=== PATIENT | male | born 1990 | race Caucasian/White ===

== ENCOUNTER 2019-08-28 15:11 | Outpatient (CLI) | payer BC | END 2019-08-28 15:12 | disposition home or self-care (01) | LOC: CTENTCT 15:11 | PROVIDERS: ATTEND Otolaryngology Plastic Surgery within the Head & Neck | DX: J32.8 Other chronic sinusitis (principal) | CPT/HCPCS: 70486 ==

== ENCOUNTER 2019-09-20 07:33 | Day surgery (SDC) | payer BC ==
[2019-09-19 10:26] VITALS: BMI 25.0
[2019-09-20] MEDS ORDERED: AFRIN NASAL MIST 15 ML BOT ONE ×2 (08:56→10:02)
[2019-09-20] MEDS ORDERED: Ondansetron PF 4 MG/2 ML Vial ONE (09:31)
[2019-09-20] MEDS ORDERED: Dexamethasone 20 MG/5 ML VIAL ONE (09:31)
[2019-09-20] MEDS ORDERED: Succinylcholine Chloride 20 MG/ML 10 ml SYRINGE FS ONE (09:31)
[2019-09-20] MEDS ORDERED: PROPOFOL 200 MG/20 ML VIAL ONE (09:31)
[2019-09-20] MEDS ORDERED: Lidocaine 1% PF 5 ML VIAL ONE (09:31)
[2019-09-20] MEDS ORDERED: Rocuronium Bromide 10 MG/ML (10ML VIAL) ONE (09:31)
[2019-09-20] MEDS ORDERED: Glycopyrrolate 0.2 MG/ML 5 ML SYRINGE ONE (09:31)
[2019-09-20] MEDS ORDERED: Bacitracin Zinc Ointment 30 gm TUBE ONE (10:02)
[2019-09-20] MEDS ORDERED: Lidocaine 1% w/Epinephrine 1:100K 20 ML VIAL ONE (10:02)
[2019-09-20] MEDS ORDERED: Fentanyl 250 MCG/5 ML VIAL ONE (10:05)
[2019-09-20] MEDS ORDERED: Fentanyl 100 MCG/2 ML VIAL ONE (11:45)
[2019-09-20] MEDS ORDERED: HYDROcodone/Acetaminophen 5/325 mg Tablet ONE (12:06)
--- NOTE | 2019-09-21 12:31 | OP ---
DATE OF PROCEDURE: 09/20/2019 PREOPERATIVE DIAGNOSES: 1. Chronic rhinosinusitis. 2. Bilateral nasal polyposis. 3. Nasal obstruction. 4. Bilateral inferior turbinate hypertrophy. POSTOPERATIVE DIAGNOSES: 1. Chronic rhinosinusitis. 2. Bilateral nasal polyposis. 3. Nasal obstruction. 4. Bilateral inferior turbinate hypertrophy. PROCEDURES PERFORMED: 1. Bilateral endoscopic sinus surgery, total ethmoidectomies with removal of tissue. 2. Bilateral endoscopic sinus surgery, maxillary antrostomies with removal of tissue. 3. Bilateral endoscopic sinus surgery, frontal sinusotomy with removal of tissue. 4. Bilateral endoscopic sinus surgery, sphenoidotomy with removal of tissue. 5. Bilateral inferior turbinate submucosal resection. 6. [employer] image-guided cranial-base navigational surgery. ESTIMATED BLOOD LOSS: 50 mL. COMPLICATIONS: None. ANESTHESIA: GETA. DESCRIPTION OF PROCEDURE: The patient was taken to the operating room, placed supine on the operating room table. General endotracheal anesthesia was obtained by the Anesthesia Staff. Tube was secured in the midline of the left lower lip and the patient was placed in the beach chair position. Following this, the 0-degree endoscope was advanced to the nasal cavity. There was marked scarring and nasal polyps obstructing and obliterating the middle meatus. 1% lidocaine with 1:100,000 epinephrine was injected into the inferior turbinates, middle turbinates, and lateral nasal wall bilaterally. Following this, the [place] elevator was used to medialize the middle turbinates. There was adhesions present that were cut using the [place] elevator and the straight forceps. This allowed access to the middle meatus. Polypoid tissue was removed using the microdebrider from this area. A ball-ended probe was then used to identify the uncinate process and anteriorly fractured the uncinate process. The uncinate process was then removed bilaterally using 0-degree microdebrider and the up-biting Blakesley forceps. Following this, a ball-ended probe was used to palpate and identify the maxillary sinus ostia. Maxillary sinus ostia were then widened using the curved microdebrider and the straight [place]ley forceps bilaterally. Polypoid mucosa and polyps were removed from the maxillary sinus area. Following this, ethmoidal bulla was identified using the image-guided system and was punctured using the 0-degree microdebrider and was removed with the 0-degree microdebrider and up-biting Blakesley forceps. Following this, the grand lamella was identified and was punctured into the posterior ethmoidal sinus using 0-degree microdebrider. Working from posterior to anterior, the ethmoidal cells were opened in a mucosal-sparing technique. Polypoid tissue and debris were removed throughout the ethmoidal sinuses. Following this, the sphenoid sinuses were approached through the previous ethmoidectomies. Then, the image-guided system was used to confirm position of the anterior face of the sphenoid sinus. A sphenoidotomy was created using a Clark tip suction bilaterally. Following this, the sphenoidotomy was widened in a medial and inferior direction using the 0-degree microdebrider. Polyps and purulent debris were removed from the sphenoid sinuses bilaterally. Following this, the 45-degree endoscope and the 40-degree microdebrider blade was used to further open the frontal sinus recess bilaterally, exposing the frontal sinus ostia. The frontal sinus ostia were widened using the 40-degree microdebrider and up-biting Blakesley forceps bilaterally. Following this, the inferior turbinates were punctured on the anterior and inferior aspect of the submucosal microdebrider and submucosal resection was performed of the anterior and inferior aspect of the inferior turbinates bilaterally. Following this, the nasal cavity was irrigated and NasoPore packing was placed within the middle meatus. The patient tolerated the procedure well. Job ID: [id number]
== END 2019-09-20 13:25 ==
LOC: SDC 07:33
PROVIDERS: ATTEND Otolaryngology Plastic Surgery within the Head & Neck
PROC: 09BU8ZZ Excision of Right Ethmoid Sinus, Via Natural or Artificial Opening Endoscopic (ICD-10-PCS; principal; 2019-09-20)
PROC: 8E09XBZ Computer Assisted Procedure of Head and Neck Region (ICD-10-PCS; principal; 2019-09-20)
PROC: 09CW8ZZ Extirpation of Matter from Right Sphenoid Sinus, Via Natural or Artificial Opening Endoscopic (ICD-10-PCS; principal; 2019-09-20)
PROC: 09BV8ZZ Excision of Left Ethmoid Sinus, Via Natural or Artificial Opening Endoscopic (ICD-10-PCS; principal; 2019-09-20)
PROC: 099R8ZZ Drainage of Left Maxillary Sinus, Via Natural or Artificial Opening Endoscopic (ICD-10-PCS; principal; 2019-09-20)
PROC: 09BL8ZZ Excision of Nasal Turbinate, Via Natural or Artificial Opening Endoscopic (ICD-10-PCS; principal; 2019-09-20)
PROC: 09BT8ZZ Excision of Left Frontal Sinus, Via Natural or Artificial Opening Endoscopic (ICD-10-PCS; principal; 2019-09-20)
PROC: 09BS8ZZ Excision of Right Frontal Sinus, Via Natural or Artificial Opening Endoscopic (ICD-10-PCS; principal; 2019-09-20)
PROC: 099Q8ZZ Drainage of Right Maxillary Sinus, Via Natural or Artificial Opening Endoscopic (ICD-10-PCS; principal; 2019-09-20)
PROC: 09CX8ZZ Extirpation of Matter from Left Sphenoid Sinus, Via Natural or Artificial Opening Endoscopic (ICD-10-PCS; principal; 2019-09-20)
DX: J32.9 Chronic sinusitis, unspecified (principal); J34.3 Hypertrophy of nasal turbinates; J33.9 Nasal polyp, unspecified; J30.9 Allergic rhinitis, unspecified
CPT/HCPCS: J1100; J2001; J2405; J2704; J3010